=== PATIENT | male | born 1955 | race Caucasian/White ===

== ENCOUNTER 2021-03-08 07:40 | Outpatient (CLI) | payer OTHER, SELFPAY ==
--- NOTE | 2021-03-08 07:54 | USCV_ITS ---
Jayson Vergara Age: 65 Gender: M : 1955 Exam Date: 03/08/2021 08:05 Ordering Phys: Dorota Mcdonald MD Technologist: [place] [facility] [place]: CP BP: 147 / 86 HR: 65 Rhythm: Sinus Technical Quality: Adequate MEASUREMENTS (Male / Female) Normal Values 2D ECHO LV Diastolic Diameter PLAX 3.4 cm 4.2 - 5.9 / 3.9 - 5.3 cm LV Systolic Diameter PLAX 2.2 cm IVS Diastolic Thickness 1.0 cm 0.6 - 1.0 / 0.6 - 0.9 cm IVS Systolic Thickness 1.2 cm LVPW Diastolic Thickness 1.1 cm 0.6 - 1.0 / 0.6 - 0.9 cm LVPW Systolic Thickness 1.3 cm LVOT Diameter 2.0 cm LV Ejection Fraction 2D Teich 65.5 % LV Ejection Fraction MOD 2C 41.0 % LV Ejection Fraction 2C AL 43.3 % LA Diameter 3.0 cm LA Width 3.4 cm LA Height 4.6 cm RA Width 3.3 cm RA Height 4.2 cm Aorta at Sinotubular Diameter 2.6 cm DOPPLER AV Peak Velocity 123.0 cm/s LVOT Peak Velocity 101.0 cm/s AV Area Cont Eq vti 2.9 cm squared AV Area Cont Eq pk 2.6 cm squared MV Area PHT 5.0 cm squared Mitral E to A Ratio 1.0 MV E' Velocity 50.5 cm/s Mitral E to MV E' Ratio 12.9 Mitral E to LV E' Lateral Ratio 11.9 Mitral E to LV E' Septal Ratio 14.3 TR Peak Velocity 140.0 cm/s TR Peak Gradient 7.8 mmHg PV Peak Velocity 96.0 cm/s FINDINGS Left Ventricle Normal left ventricular size and systolic function, EF 61 %. No regional wall motion abnormalities. Mild left ventricular hypertrophy. Right Ventricle The right ventricle is normal in size and function. Right Atrium The right atrium is normal in size. Left Atrium The left atrium is normal in size. Mitral Valve Thickened mitral valve. Aortic Valve Thickened aortic valve. Tricuspid Valve No gross abnormalities noted Pulmonic Valve Pulmonic valve not well visualized. Pericardium Normal pericardium without effusion. Aorta Normal ascending aorta dimension. CONCLUSIONS Normal left ventricular size and systolic function, EF 61 %. No regional wall motion abnormalities. Mild left ventricular hypertrophy. Minimally thickened aortic and mitral valves. There is no pericardial effusion. No significant stenotic or uterine lesions No previous study is available for comparison. Dr Jenna Sullivan MD FACC (Electronically Signed) Final Date: 08 March 2021 22:58 S
--- NOTE | 2021-03-08 08:01 | ECG_ITS ---
[facility] Test Date: 2021-03-08 Pat Name: Jayson Vergara Department: Room: Gender: Male Manager Sql: : 1955 Requested By: [employer] Order Number: [id number] Conrad MD: Jenna Sullivan M.D. Interpretive Statements NAME OF STUDY: LEXISCAN SESTAMIBI STRESS TEST INDICATION: Chest Pain, PROCEDURE: At the baseline, the EKG revealed sinus bradycardia with a poor R wave progression. The baseline blood pressure was 141/60 mm Hg with a heart rate of 58 beats/min. Lexiscan was infused over a period of 20 seconds. A total of 0.4 milligrams of Lexiscan was infused. The stress phase was continued for a total of 5 minutes. Heart rate at the end of the stress phase was 68 with a blood pressure 139/61. The EKG at the peak infusion revealed no significant changes. Sestamibi was injected 20 seconds after the Lexiscan infusion. Blood pressure at the end of the recovery phase was 136/57 with a heart rate of 65 per minute. CONCLUSION: 1. No significant EKG changes with the LexiScan infusion 2. No LexiScan induced chest pain or cardiac arrhythmia 3. Normal blood pressure and heart rate response 4. Sestamibi/sestamibi perfusion scan pending; see separate report. Electronically Signed On 03-10-2021 0:29:00 CDT by Jenna Sullivan M.D. [email or web address]
--- NOTE | 2021-03-08 08:01 | NMCV_ITS ---
NM shimon perf SPECT r/s* [id number] Jayson Vergara Age: 65 Gender: M : 1955 Exam Date: 03/08/2021 08:44 Ordering Phys: Dorota Mcdonald MD Technologist: CRISTIAN Hughes Exam [facility]: [facility] Indications: CHEST PAIN STRESS TEST Please see separate stress test report in [facility] for full findings IMAGE PROTOCOL Rest/Stress 1 Lexiscan Day Radiopharmaceutical Dose (mCi) Administration Site Administered by Rest: Tc-99m 10.9 IV CRISTIAN Granados Sestamibi Stress:Tc-99m 32.7 IV CRISTIAN Granados Sestamibi Rest: 08-Mar-2021 60 Discovery 630 Stress: 08-Mar-2021 30 Discovery 630 0.4mg Lexiscan. Images obtained in supine and prone position. SPECT RESULTS Technical Quality: Excellent Raw Data Analysis: Normal Image Corrections: No attenuation or motion correction applied Summed Stress Score: 4 Summed Rest Score: 6 Summed Difference Score: 0 PERFUSION FINDINGS Small to moderate decreases uptake was noted in the mid and apical inferior, mid inferoseptal, apical septal and LV apex. No significant reversibility was noted in these regions. FUNCTIONAL RESULTS (calculated via Gated SPECT) Stress Image LV EF (%): 63 Stress EDV (mL):99 TID: 1.29 Stress ESV (mL):37 FUNCTIONAL FINDINGS: Segmental wall motion analysis revealing no gross wall motion abnormalities. Elevated transient ischemic dilatation ratio of 1.29 IMPRESSIONS 1. Myocardial perfusion imaging revealing small to moderate area of persistent decreased tracer uptake in the inferior, inferoseptal and apical segments, suggestive of myocardial scarring versus attenuation artifact. 2. Normal LV ejection fraction of 63%. 3. LV wall motion analysis revealing no gross wall motion normalities. 4. Normal LV volume. 5. Elevated transient ischemic dilatation ratio, may suggest endocardial ischemia. However the positive predictive value of this finding is limited. Clinical correlation recommended Dr Jenna Sullivan MD FAC (Electronically Signed) Final Date: 08 March 2021 16:43 S
[2021-03-08] MEDS: regadenoson 0.4 Mg/5 ml Syringe IVP (09:53)
[2021-03-08 10:05] VITALS: BP 141/60; PULSE 65
== END 2021-03-08 07:41 | disposition home or self-care (01) ==
LOC: CDL 07:42
PROVIDERS: PCP Nurse Practitioner; Visit Provider Internal Medicine Critical Care Medicine
DX: R06.02 Shortness of breath (principal); R07.9 Chest pain, unspecified
CPT/HCPCS: 78452; 93017; 93306; A9500; J2785